=== PATIENT | female | born 1960 | race Caucasian/White ===

== ENCOUNTER 2021-08-14 17:11 | Emergency (ER) | payer OTHER ==
[~2021-08-14] VITALS: Ht 157.5 cm; Wt 124.7 kg
[~2021-08-14 17:11] MED LIST: BENTYL 20 MG TA20 M1 PO; ONDANSETRON HCL4 M2 PO; SYMBICORT160 MCG/4. INH; VENTOLIN HFA 1818 GM INH
[2021-08-14 17:20] VITALS: BP 163/69
[2021-08-14] MEDS ORDERED: CEPHALEXIN500 MG PO (17:49)
== END 2021-08-14 18:03 | disposition home or self-care (01) ==
LOC: ER 17:11
DX: T24.622A Corrosion of second degree of left knee, initial encounter (principal); T32.0 Corrosions involving less than 10% of body surface; L25.3 Unspecified contact dermatitis due to other chemical products; L03.116 Cellulitis of left lower limb; L03.115 Cellulitis of right lower limb; J44.9 Chronic obstructive pulmonary disease, unspecified; F17.210 Nicotine dependence, cigarettes, uncomplicated; Z98.890 Other specified postprocedural states; Z90.49 Acquired absence of other specified parts of digestive tract; Z79.51 Long term (current) use of inhaled steroids; Z79.899 Other long term (current) drug therapy; Z88.2 Allergy status to sulfonamides; Z91.040 Latex allergy status; Y93.89 Activity, other specified; Y92.89 Other specified places as the place of occurrence of the external cause; Y99.8 Other external cause status